=== PATIENT | male | born 1940 | race Caucasian/White ===

== ENCOUNTER → 2016-05-16 | Outpatient (CLI) | payer BC, MEDICARE ==
--- NOTE | 2016-05-17 08:08 | CT ---
EXAMINATION TYPE: CT chest wo con DATE OF EXAM: 05/16/2016 7:12 PM COMPARISON: NONE HISTORY: Difficulty breathing, follow up pleural effusion. CT DLP: 559.30 mGycm, Automated exposure control for dose reduction was used. CONTRAST: None TECHNIQUE: Axial images were obtained at 5 mm thick sections. Reconstructed images are reviewed on [employer] computer in the coronal plane. FINDINGS: Portion of the thyroid visualized is normal. There is a moderate left pleural effusion. A small right pleural effusion is present. Some compressiv e atelectasis or consolidation is at the left base. Increased density is within the lingula. Atelecta sis and pneumonia should be considered. Underlying masses cannot be excluded. Consider standard CT ch est for additional evaluation. Pneumonitis changes are within the periphery of the right renal lobe adjacent to the major fissure pe riphery minimal pneumonitis changes are at the right base. No enlarged mediastinal or hilar adenopathy is evident. The ascending aorta diameter at the level o f the main pulmonary artery is 4.3 cm. The main pulmonary artery diameter at the bifurcation is 3.2 cm. Vascular calcification in aorta coronary artery calcification is present. Significant change. Prone and supine imaging. Limited CT sections are obtained through the upper abdomen. Some fusiform prominence of the proximal abdominal aorta may be present. Consider additional evaluation with CT abdomen. IMPRESSIONS: 1. Consolidations at the lingula left lower lobe. Compressive atelectasis and pneumonia could be cons idered. Underlying masses are not excluded. Consider follow-up CT chest. 2. Scattered areas of pneumonitis which are nonspecific. 3. Moderate left small right pleural effusion. 4. Ascending thoracic aortic aneurysm measuring 4.3 cm. There is a suggestion of fusiform prominence of the proximal abdominal aorta. Consider CT chest and abdomen with contrast for further evaluation o f the aorta.
== END | disposition home or self-care (01) ==
LOC: RADCTMAIN 18:37
PROVIDERS: ATTEND Internal Medicine Cardiovascular Disease
DX: J18.1 Lobar pneumonia, unspecified organism (principal); J18.9 Pneumonia, unspecified organism; J90 Pleural effusion, not elsewhere classified; I71.2 Thoracic aortic aneurysm, without rupture
CPT/HCPCS: 71250